=== PATIENT | female | born 2000 | race Caucasian/White ===

== ENCOUNTER 2019-01-09 23:32 | Emergency (ER) | payer SELFPAY ==
[~2019-01-09] VITALS: Ht 160 cm; Wt 63.6 kg
[2019-01-10] MEDS ORDERED: ACETAMINOPHEN 500 MG TAB PO ONE (06:45)
[2019-01-10 08:47] VITALS: BP 118/57
--- NOTE | 2019-01-10 14:30 | REP ---
RIGHT ANKLE, FOUR VIEWS: There is no evidence of an acute fracture, dislocation or intrinsic bone disease. IMPRESSION: No fracture or dislocation. Electronically Signed by Gume Kamara MD 01/11/2019 10:10 P
== END 2019-01-10 08:47 | disposition home or self-care (01) ==
LOC: M ED 23:32
DX: S93.411A Sprain of calcaneofibular ligament of right ankle, initial encounter (principal); X50.9XXA Other and unspecified overexertion or strenuous movements or postures, initial encounter; Y92.018 Other place in single-family (private) house as the place of occurrence of the external cause